=== PATIENT | male | born 1995 | race Caucasian/White ===

== ENCOUNTER 2017-10-06 10:37 | Emergency (ER) | payer OTHER | END 2017-10-06 12:15 | disposition home or self-care (01) | LOC: E/R 10:37 | DX: H66.93 Otitis media, unspecified, bilateral (principal); J20.9 Acute bronchitis, unspecified | CPT/HCPCS: 99284 ==

== ENCOUNTER 2018-05-02 20:33 | Emergency (ER) | payer OTHER | END 2018-05-02 22:40 | disposition home or self-care (01) | LOC: FTE 20:33 | DX: Z11.3 Encounter for screening for infections with a predominantly sexual mode of transmission (principal); Z87.891 Personal history of nicotine dependence | CPT/HCPCS: 36415; 86694; 87591; 99283 ==